=== PATIENT | female | born 1945 | race Caucasian/White ===

== ENCOUNTER → 2020-02-10 09:57 | Outpatient (CLI) | payer MEDICARE, SELFPAY ==
[2020-02-05 13:08] VITALS: BMI 26.1
== END ==
PROVIDERS: PCP Internal Medicine; Referring Provider Internal Medicine Cardiovascular Disease; Visit Provider Internal Medicine Cardiovascular Disease
DX: I47.1 Supraventricular tachycardia (principal)
CPT/HCPCS: 93225; 93226

== ENCOUNTER → 2020-03-03 10:50 | Outpatient (CLI) | payer MEDICARE, SELFPAY ==
[2020-02-05 13:08] VITALS: BMI 26.1
--- NOTE | 2020-03-03 10:51 | ECHOD_ITS ---
Reason For Study: ARRYTHYMIA Procedure This was a 2D Doppler, Color Flow transthoracic echocardiogram. Exam performed in department. Left Ventricle Normal LV size. Left ventricular systolic function is normal. The estimated ejection fraction is 65 %. No regional wall motion abnormalities noted. Right Ventricle Normal RV size. Normal systolic function. Atria Normal left atrium. Normal right atrium. Mitral Valve Normal mitral valve. Tricuspid Valve Normal tricuspid valve. Mild tricuspid valve insufficiency. Pulmonary artery systolic pressure is 22 mmHg. Aortic Valve Normal aortic valve. Trisinus/trileaflet aortic valve. Pulmonic Valve Normal pulmonic valve. Great Vessels Normal aortic root. The pulmonary artery is normal size. Normal inferior vena cava. Pericardium/Pleural No pericardial effusion. MMode/2D Measurements & Calculations LVIDd: 4.2 cm IVSd: 0.70 cm Ao root diam: 3.2 cm LVIDs: 2.8 cm LVPWd: 0.86 cm RVDd: 2.6 cm FS: 33.5 % LAV(MOD-bp): 37.7 ml LVAd ap4: 24.7 cm2 SV(MOD-sp4): 42.6 ml LAV(MOD-bp) Indexed: 21.1 ml/m2 EDV(MOD-sp4): 64.4 ml LAV(MOD-sp2): 35.8 ml EDV(sp4-el): 68.5 ml LAV(MOD-sp4): 33.9 ml LVAs ap4: 12.4 cm2 ESV(MOD-sp4): 21.8 ml ESV(sp4-el): 22.0 ml EF(MOD-sp4): 66.2 % EF(sp4-el): 67.9 % SV(sp4-el): 46.5 ml LA A4 area: 13.4 cm2 LA dimension(2D): 3.0 cm RA A4 area: 9.9 cm2 Time Measurements MV dec time: 0.22 sec Doppler Measurements & Calculations MV E max colton: 83.1 cm/sec Lat Peak E' Colton: 10.6 cm/sec Med Peak E' Colton: 8.2 cm/sec MV A max colton: 84.8 cm/sec E/E' lat: 7.9 E/E' med: 10.2 MV E/A: 0.98 Ao V2 max: 129.8 cm/sec LV V1 max: 99.1 cm/sec PA V2 max: 102.8 cm/sec Ao max P.7 mmHg LV V1 max P.9 mmHg TR max colton: 222.2 cm/sec TR max P.8 mmHg Interpretation Summary Normal LV size. Left ventricular systolic function is normal. The estimated ejection fraction is 65 %. Mild tricuspid valve insufficiency. Pulmonary artery systolic pressure is 22 mmHg. Ordering Physician: Fernando Hernandez Referring Physician: MINDY GUERRERO Performed By: Renea Pan RDCS
== END ==
PROVIDERS: PCP Internal Medicine; Referring Provider Internal Medicine Cardiovascular Disease; Visit Provider Internal Medicine Cardiovascular Disease
DX: I47.1 Supraventricular tachycardia (principal)
CPT/HCPCS: 93306

== ENCOUNTER → 2022-01-24 | Outpatient (CLI) | payer MEDICARE, SELFPAY ==
--- NOTE | 2022-01-24 09:00 | KNEE_PTH ---
PATIENT: MELE [facility]URRY [facility] U[facility][id number] AGE/SX: 76/F ROOM: RE01/24/[address]: Dr. Keny Angel DO : 1945 BED: DIS: 01/24/2022 SPEC #: [id number] RECD: 01/24/22 14:54 STATUS: RAMAN REQ #: [id number] JAYME: 01/24/22 09:[address]: Keny Angel DEPT: SURGICAL PATHOLOGY RECD BY: Lee Johnston ENTERED: 01/25/22 07:06 SP TYPE: TOTAL KNEE OTHR DR: Dr. Dayana Carvajal MD [facility] Tissues: Knee, NOS Procedures: Decalcification bone/plaque Surgery Specimen Level IV HEADER OPERATION: Robotic assisted left total knee arthroplasty PRE-OP DIAGNOSIS: Unilateral primary osteoarthritis left knee TISSUE SUBMITTED: Left knee bone and tissue MICROSCOPIC DIAGNOSIS Bone and soft tissue, left knee, total knee replacement/resection: Pieces of bone with degenerative osteoarthritic changes. DANIELA:carrie 01/31/2022 MICROSCOPIC DESCRIPTION Slides are reviewed. GROSS DESCRIPTION Received is one container designated bone and soft tissue left knee. The specimen consists of multiple fragments of díaz-yellow bone measuring in aggregate 11 x 10 x 3 cm. No soft tissue is identified. A number of bony fragments contain articular surfaces consistent with tibial plateau and femoral condyle and displaying prominent osteophyte formation, eburnation, and bone erosion. Manager Pmo sections are submitted in one cassette after decalcification. / DANIELA:carrie 01/25/2022 TC:5 CPT: 89338, 66449
== END | disposition home or self-care (01) ==
LOC: LABSPEC 14:59
PROVIDERS: PCP Internal Medicine; Visit Provider Orthopaedic Surgery
DX: M17.12 Unilateral primary osteoarthritis, left knee (principal)
CPT/HCPCS: 88305; 88311